=== PATIENT | female | born 1960 | race African-American/Black ===

== ENCOUNTER 2017-10-08 12:02 | Emergency (ER) | payer MEDICAID ==
[~2017-10-08] VITALS: Ht 162.6 cm; Wt 97.0 kg
[~2017-10-08 12:02] MED LIST: HYDR25TA PO; IBUPROFEN; POTASSIUM; VITAMINS
[2017-10-08 12:21] VITALS: BP 171/98
[2017-10-08] MEDS ORDERED: IPRATROPIUM BROMIDE (0.02%) 0.5MG/2.5ML NEB HHN STA (19:26)
[2017-10-08] MEDS ORDERED: PREDNISONE 20MG TABLET PO STA (19:26)
[2017-10-08] MEDS ORDERED: ALBUTEROL (0.083%) 2.5MG/3ML NEB HHN STA (19:26)
[2017-10-08 20:00] LABS: BASOPHILS % 0.3 % (0.0-2.0); EOSINOPHILS % 2.6 % (0.0-5.0); HEMATOCRIT. 36.2 % (36.0-48.0); HEMOGLOBIN. 12.2 g/dL (12.0-16.0); LYMPHOCYTES % 38.2 % (20.0-50.0); MEAN CORPUSCULAR HEMOGLOBIN 32.7 pg (28.0-32.0); MEAN CORPUSCULAR VOLUME 97.2 fL (81.0-99.0); MEAN PLATELET VOLUME 8.7 fl (7.4-10.4); MONOCYTES % 9.8 % (2.0-8.0); NEUTROPHILS % 49.1 % (40.0-76.0); PLATELET 205 x1000/uL (130-400); RED BLOOD CELL COUNT 3.73 mill/uL (4.2-5.4); RED CELL DISTRIBUTION WIDTH 13.2 % (11.6-14.6)
[2017-10-08 20:04] LABS: CHLORIDE 106 mEq/L (98-107)
[2017-10-08 20:14] LABS: CARBON DIOXIDE 30 mEq/L (21-32)
[2017-10-08] MEDS ORDERED: POTASSIUM CHLORIDE 20MEQ TABLET SR PO ONE (20:30)
== END 2017-10-08 21:02 | disposition home or self-care (01) ==
LOC: ER 15:14
DX: R05 Cough (principal); R06.02 Shortness of breath; I10 Essential (primary) hypertension; F17.210 Nicotine dependence, cigarettes, uncomplicated; F12.10 Cannabis abuse, uncomplicated
CPT/HCPCS: 36415; 71045; 80053; 83880; 85025; 99285; J7512

== ENCOUNTER 2017-12-11 14:52 | Emergency (ER) | payer MEDICAID ==
[~2017-12-11] VITALS: Ht 162.6 cm; Wt 96.0 kg
[2017-12-11] MEDS ORDERED: IBUPROFEN 600MG TABLET PO ONE (21:00)
[2017-12-11] MEDS ORDERED: LIDOCAINE HCL 1% 20ML VIAL (Pyxis) INJ MC ONE (21:00)
[2017-12-11] MEDS ORDERED: BACITRACIN ZINC OINT UDPKT TOP ONE (21:00)
[2017-12-11] MEDS ORDERED: HYDROCODONE/APAP 7.5/325MG 1 TAB TABLET PO ONE (22:30)
[2017-12-11 22:32] VITALS: BP 174/100
== END 2017-12-11 22:34 | disposition home or self-care (01) ==
LOC: ER 15:42
DX: L02.212 Cutaneous abscess of back [any part, except buttock and flank] (principal); I10 Essential (primary) hypertension; F12.10 Cannabis abuse, uncomplicated
CPT/HCPCS: 10060; 99284; J3490; Z7610

== ENCOUNTER 2017-12-14 18:04 | Emergency (ER) | payer MEDICAID ==
[~2017-12-14] VITALS: Ht 165.1 cm; Wt 96.0 kg
[2017-12-14 18:24] VITALS: BP 145/96
[2017-12-14] MEDS ORDERED: BACITRACIN ZINC OINT UDPKT TOP ONE (22:00)
== END 2017-12-14 22:18 | disposition home or self-care (01) ==
LOC: ER 20:04
DX: Z48.00 Encounter for change or removal of nonsurgical wound dressing (principal); I10 Essential (primary) hypertension; F12.10 Cannabis abuse, uncomplicated
CPT/HCPCS: 99282